=== PATIENT | female | born 1955 | race Caucasian/White ===

== ENCOUNTER 2017-07-14 15:26 | Emergency (ER) | payer OTHER ==
[2017-07-14 15:33] VITALS: TEMP 97.9
--- NOTE | 2017-07-14 15:37 | EDPHY ---
H & P Stated Complaint: racing heart since friday Time Seen by Provider: 07/14/17 15:36 - Medical/Surgical History Hx Asthma: No Hx Chronic Respiratory Disease: No Hx Diabetes: No Hx Cardiac Disease: No Hx Renal Disease: No Hx Cirrhosis: No Hx Alcoholism: No Hx HIV/AIDS: No Hx Splenectomy or Spleen Trauma: No Other PMH: PMH- HYPOTHYROID, UTERNIE CA, ?SVT. PSH0 HYSTERECTOMY - Social History Smoking Status: Never smoked Constitutional: Initial Vital Signs Temperature (C) 36.6 C 07/14/17 15:30 Heart Rate 94 07/14/17 15:30 Respiratory Rate 18 07/14/17 15:30 Blood Pressure 115/69 07/14/17 15:30 O2 Sat (%) 96 07/14/17 15:30 O2 Delivery Mode Room Air Allergies/Adverse Reactions: No Known Allergies Allergy (Unverified 07/14/15 16:57) Home Medications: Medication Instructions Recorded Magnesium 07/14/15 Synthroid 07/14/15 Medical Decision Making - Diagnostics EKG Interpretation: The 12 lead EKG was interpreted by myself. It shows intermittent premature atrial contractions. See hard copy and/or "tracemaster" electronic copy for interpretation. ED Course/Re-evaluation: CHIEF COMPLAINT: Heart palpitations HISTORY OF PRESENT ILLNESS: The patient is a 62 y/o female with a history of heart palpitations of unknown origin complaining of more frequent symptoms. She was evaluated in 2014 for similar symptoms and no acute cause was found. She was referred to cardiology for follow-up. She describes her heart palpitations as brief, lasting only half a second and taking her breath away. She feels she is forced to kneel during the episode. Over the past three months she noticed an increase in frequency of her symptoms. Friday she experienced seven episodes of heart palpitations. REVIEW OF SYSTEMS: A 10 point review of systems was performed and is negative with the exception of the elements mentioned in the history of present illness. PHYSICAL EXAM: HR, BP, O2 Sat, RR. Temp noted General Appearance: Alert, well hydrated, appropriate, and non-toxic appearing. Head: Atraumatic without scalp tenderness or obvious injury Eyes: Pupils equal, round, reactive to light and accommodation, EOMI, no trauma , no injection. Ears: Clear bilaterally, no perforation, normal landmarks Nose: Atraumatic, no rhinorrhea, clear. Throat: There is no erythema or exudates, no lesions, normal tonsils, mucus membranes moist. Neck: Supple, 2+ carotid upstroke, nontender, no lymphadenopathy. Respiratory: No retractions, no distress, no wheezes, and no accessory muscle use. Lungs are clear to auscultation bilaterally. Cardiovascular: Regular rate and rhythm, no murmurs, rubs, or gallops. Gastrointestinal: Abdomen is soft, nontender, non-distended, no masses, no rebound, no guarding, no peritoneal signs. Musculoskeletal: Normal active ROM of all extremities, atraumatic. Neurological: Alert, appropriate, and interactive. The patient has normal DTRs and non-focal cranial nerves, motor, sensory, and cerebellar exam. Skin: No rashes, good turgor, no nodules on palpation. Past medical history: Heart palpitations, thyroid replacement medications. Past surgical history: Denies. Family history: Non-contributory. 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 Past medical records reviewed including ED visit in 2014. DIAGNOSTICS/PROCEDURES/CRITICAL CARE TIME: The 12 lead EKG was interpreted by myself. It shows intermittent premature atrial contractions. See hard copy and/or "tracemaster" electronic copy for interpretation. DIFFERENTIAL DIAGNOSIS: The differential diagnosis for the patient's heart palpitations included but was not limited to arrhythmia, myocardial ischemia, pulmonary embolus, chest wall pain, pleural inflammation, and pulmonary infectious causes. MEDICAL DECISION MAKING: The patient is a 62 y/o female complaining of more frequent heart palpitations. She has been evaluated several years ago for similar symptoms and no acute cause was found. She has noticed an increase in the frequency of her symptoms. EKG and labs ordered. 1630: EKG shows premature atrial contractions which likely are the cause of her symptoms. I will update and reassess the patient. 182: So far the patient's labs are unremarkable. CBC is not yet back but patient requests to go home. I feel she is safe to be released. Return precaution and follow-up information given. - Data Points Laboratory Results: Laboratory Results 07/14/17 15:59 07/14/17 15:59 07/14/17 07/14/17 07/14/17 15:59 15:59 15:59 WBC TNP RBC Not Reported Hgb Not Reported Hct Not Reported MCV Not Reported MCH Not Reported MCHC Not Reported RDW Not Reported Plt Count Not Reported MPV Not Reported Neut % (Auto) Not Reported Lymph % (Auto) Not Reported [place] % (Auto) Not Reported Eos % (Auto) Not Reported Baso % (Auto) Not Reported Nucleat RBC Rel Count Not Reported Absolute Neuts (auto) Not Reported Absolute Lymphs (auto) Not Reported Absolute Monos (auto) Not Reported Absolute Eos (auto) Not Reported Absolute Basos (auto) Not Reported Absolute Nucleated RBC Not Reported Immature Gran % Not Reported Immature Gran # Not Reported D-Dimer < 0.27 ug/mLFEU ug/mLFEU (0.00-0.50) Sodium 140 mEq/L mEq/L (134-144) Potassium 4.0 mEq/L mEq/L (3.5-5.2) Chloride 105 mEq/L mEq/L (97-110) Carbon Dioxide 27 mEq/l mEq/l (22-31) Anion Gap 8 mEq/L mEq/L (8-16) BUN 17 mg/dL mg/dL (7-23) Creatinine 0.9 mg/dL mg/dL (0.6-1.0) Estimated GFR > 60 Glucose 82 mg/dL mg/dL (70-100) Calcium 10.1 mg/dL mg/dL (8.5-10.4) Magnesium 2.2 mg/dL mg/dL (1.6-2.3) Troponin I < 0.012 ng/mL ng/mL (0.000-0.034) NT-Pro-B Natriuret Pep 115 pg/mL pg/mL (0-125) TSH 1.390 uIU/mL uIU/mL (0.465-4.680) Departure - Departure Disposition: Home, Routine, Self-Care Clinical Impression: Premature atrial contraction Condition: Good Instructions: Palpitations (ED), Premature Atrial Contractions (ED) Additional Instructions: 1. Follow-up with Dr. Tavera, cardiology, regarding your premature atrial contractions in a week. 2. Return to the ED for chest pain, pain in one arm, shortness of breath, or other worsening of condition. Referrals: Sonia Lovell MD [Primary Care Provider] - As per Instructions Osmin Tavera MD [Medical Doctor] - As per Instructions Report Scribed for: Michael Buck Report Scribed by: Sara Miles Date of Report: 07/14/17 Time of Report: 16:41
--- NOTE | 2017-07-14 15:48 | CPEKG ---
Heart Rate: 75 RR Interval: 800 P-R Interval: 180 QRSD Interval: 84 QT Interval: 376 QTC Interval: 420 P [place]: 76 QRS [place]: 66 T Wave [place]: 38 EKG Severity - NORMAL ECG - EKG Impression: SINUS RHYTHM Electronically Signed By: Michael Buck 14-Jul-2017 21:06:20
[2017-07-14 16:29] LABS: ANION GAP 8 mEq/L (8-16); CALCIUM 10.1 mg/dL (8.5-10.4); CARBON DIOXIDE 27 mEq/l (22-31); CHLORIDE 105 mEq/L (97-110); CREATININE 0.9 mg/dL (0.6-1.0); GLOMERULAR FILTRATION RATE > 60; GLUCOSE 82 mg/dL (70-100); MAGNESIUM 2.2 mg/dL (1.6-2.3); SODIUM 140 mEq/L (134-144)
[2017-07-14 16:41] LABS: TROPONIN I < 0.012 ng/mL (0.000-0.034)
[2017-07-14 18:40] VITALS: BP 150/91; PULSE 76; RESP 21; O2SAT 97
== END 2017-07-14 18:44 | disposition home or self-care (01) ==
DX: I49.1 Atrial premature depolarization (principal)

== ENCOUNTER → 2017-08-14 | Outpatient (CLI) | payer OTHER | LOC: FIMAGING 08:13 | PROVIDERS: ATTEND Family Medicine | DX: Z12.31 Encounter for screening mammogram for malignant neoplasm of breast (principal) | CPT/HCPCS: G0202 ==

== ENCOUNTER 2017-10-13 07:04 | Observation (INO) | payer OTHER ==
[2017-10-13] MEDS ORDERED: NS 1,000 ML IV ONE (07:08)
--- NOTE | 2017-10-13 07:27 | CPEKG ---
Heart Rate: 67 RR Interval: 896 P-R Interval: 168 QRSD Interval: 82 QT Interval: 400 QTC Interval: 423 P [place]: 16 QRS [place]: 78 T Wave [place]: 54 EKG Severity - NORMAL ECG - EKG Impression: SINUS RHYTHM Electronically Signed By: Chucho Skelton 13-Oct-2017 08:39:14
[2017-10-13 07:39] LABS: PLATELET COUNT 198 10^3/uL (150-400)
[2017-10-13] MEDS ORDERED: HEPARIN 10,000 UNIT/10 ML MDV ONE (07:46)
[2017-10-13] MEDS ORDERED: LIDOCAINE 1% 300 MG/30 ML SDV ONE (07:46)
[2017-10-13] MEDS ORDERED: ISOPROTERENOL HCL/D5W 0.2 MG/50 ML BAG IV ONE (07:46)
[2017-10-13] MEDS ORDERED: BUPIVACAINE 0.5% 30 ML SDV ONE (07:46)
[2017-10-13 07:53] LABS: INR 0.88 (0.83-1.16); PROTIME(PATIENT) 12.2 SEC (12.0-15.0)
--- NOTE | 2017-10-13 08:31 | PDANEPAE ---
ANE History of Present Illness SVT ANE Past Medical History - Cardiovascular History Hx Hypertension: No Hx Arrhythmias: Yes Hx Chest Pain: No Hx Coronary Artery / Peripheral Vascular Disease: No Hx CHF / Valvular Disease: No Hx Palpitations: Yes - Pulmonary History Hx COPD: No Hx Asthma/Reactive Airway Disease: No Hx Recent Upper Respiratory Infection: No Hx Oxygen in Use at Home: No Hx Sleep Apnea: No - Endocrine History Hx Diabetes: No Hypothyroid: Yes Hyperthyroid: No - Renal History Hx Renal Disorders: No - Liver History Hx Hepatic Disorders: No - Neurological & Psychiatric Hx Hx Neurological and Psychiatric Disorders: No - Congenital Disorder History Hx Congenital Disorders: No ANE Review of Systems Review of systems is: negative Review of Systems: - Exercise capacity Exercise capacity: >=4 METS ANE Patient History - Allergies Allergies/Adverse Reactions: No Known Allergies Allergy (Unverified 07/14/15 16:57) - Home Medications Home Medications: Levothyroxine [Synthroid 75 mcg (*)] 75 mcg PO DAILY06 07/14/15 [Last Taken 1 Day Ago ~10/12/17] Biest [place] 1 each TP DAILY 10/08/17 [Last Taken 10/04/17] Cholecalciferol Vit D3 [Vitamin D3 2000 units tab (OTC)] 2,000 units PO DAILY [Last Taken 1 Day Ago ~10/12/17] Ferrous Sulfate [Ferrous Sulf 325 MG (*)] 325 mg PO DAILY 10/08/17 [Last Taken 1 Day Ago ~10/12/17] Herbals/Supplements -Info Only 1 ea PO DAILY 10/08/17 [Last Taken 1 Day Ago ~04/22] Ibuprofen [Motrin (*)] 200 - 400 mg PO DAILY PRN 10/08/17 [Last Taken 1 Day Ago ~10/12/17] Multivitamins [Multivitamin (*)] 1 each PO DAILY 10/08/17 [Last Taken 1 Day Ago ~10/12/17] Progesterone, Micronized [Progesterone] 100 mg PO HS 10/08/17 [Last Taken ] Testosterone Cream 1 [place] TP DAILY 10/08/17 [Last Taken 10/04/17] - NPO status NPO Status: no food or drink >8 hours - Anes Hx Anes Hx: slow to awaken from anesthesia - Smoking Hx Smoking Status: Never smoked - Alcohol Use Alcohol Use: Rarely ANE Labs/Vital Signs - Labs Result Diagrams: 10/13/17 07:25 10/13/17 07:25 - Vital Signs Vital Signs: reviewed preoperatively; see RN documention for details Height: 175.26 cm Weight: 63.503 kg ANE Physical Exam - Airway Mallampati Score: Class 2 Mouth exam: normal dental/mouth exam - Pulmonary Pulmonary: no respiratory distress - Cardiovascular Cardiovascular: regular rate and rhythym - ASA Status ASA Status: III ANE Anesthesia Plan Anesthesia Plan: general endotracheal anesthesia
--- NOTE | 2017-10-13 08:33 | PDGENHP ---
History & Physical Chief Complaint: palpitations History of Present Illness: symptomatic svt Relevant Physical Exam: [id number] [id number] Cardiorespiratory Assessment: symptomatic svt sp ablation
[2017-10-13] MEDS ORDERED: ROCURONIUM 100 MG/10 ML VIAL ONE ×2 (08:36→10:29)
[2017-10-13] MEDS ORDERED: PROPOFOL 200 MG/20 ML VIAL ONE (08:36)
[2017-10-13] MEDS ORDERED: PROPOFOL/EMULSION 500 MG/50 ML BOTTLE IV ONE ×4 (08:37→11:02)
[2017-10-13] MEDS ORDERED: fentaNYL 100 MCG/2 ML INJ ONE (08:37)
[2017-10-13] MEDS ORDERED: SUGAMMADEX SODIUM 200 MG/2 ML VIAL IVP ONE ×2 (11:22)
[2017-10-13] MEDS ORDERED: ONDANSETRON 4 MG/2 ML VIAL ONE (11:24)
[2017-10-13] MEDS ORDERED: PROTAMINE SULFATE 50 MG/5 ML VIAL IVP ONE (11:27)
[2017-10-13] MEDS ORDERED: ATROPINE SULFATE 1 MG/10 ML SYR ONE (11:50)
[2017-10-13] MEDS ORDERED: ONDANSETRON 4 MG/2 ML VIAL IVP PRN ×2 (12:09→12:10)
[2017-10-13] MEDS ORDERED: ACETAMINOPHEN 325 MG TAB PO PRN (12:09)
--- NOTE | 2017-10-13 12:09 | EPPROC ---
Electrophysiology Procedure Note: ELECTROPHYSIOLOGIC STUDY AND CATHETER MEDIATED ABLATION OF multiple FOCAL ATRIAL TACHYCARDIAS PROCEDURES PERFORMED: 1. EP evaluation with RA/RV/LA pace/record, with arrhythmia induction 2. EP evaluation with RA/RV pace record, insert/reposition catheter, with arrhythmia induction 3. Intracardiac catheter ablation, SVT arrhythmogenic focus 4. 3D mapping 5. Fluoroscopy INDICATION: Palpitations Presyncope Catheters and anesthesia: The patient arrived in the Electrophysiology Laboratory in the fasting state. The right clavicular region, right groin, and left groin area were prepped and draped in the usual sterile manner. Anesthesiologist Dr. Andres Parks administered propofol anesthesia. Appropriate non-invasive blood pressure, pulse oximetry and end-tidal CO2 monitoring was established. All catheters were placed percutaneously using the modified Seldinger technique , and advanced into position under fluoroscopic guidance. One #7 Maur[place] deflectable octapolar electrode catheter was advanced to the His-bundle position via the left femoral vein (2mm spacing; except the proximal ring which was 25cm from the tip used for unipolar recordings). One #7 Maur[place] deflectable catheter with 10 pairs of electrodes was placed via the left femoral vein into the coronary sinus. Liliane catheter was placed in the RA , followed by anh and then Pentaray catheter. Programmed stimulation was performed from the right atrium, left atrium ( coronary sinus) and right ventricle. Parahisian pacing demonstrated all retrograde conduction over the AV node Heparin was administered to keep ACT > 250 seconds. There is a probe patent PFO present. There was no antegrade slow AV jaquelin pathway conduction. Programmed stimulation of right atrium during infusion of isoproterenol 1 mcg/ min induced atrial tachycardias as noted below. High resolution mapping of the atrial tachycardia was done using Pentaray catheter. Following this, a #7 Mauritian mapping catheter was introduced into the right atrium and used for mapping AT . SR0 sheath was used. A 3D mapping system ([employer]) was used. Following atrial tachycardias were induced and successfully ablated. High output pacing was performed at each site to exclude phrenic nerve locations. AT#1 CL 440 ms, superior aspect of anh terminalis. AT#2 CL 290-300 ms SVC-RA junction AT#3, CL 420 ms SVC RA junction AT #4, CL 460 ms base of right atrial appendage Programmed stimulation in the baseline state and during infusion of isoproterenol 1 and mcg/min post ablation was performed. No tachycardia could be induced. The catheters were removed. The patient was transferred to the cardiovascular holding area in stable condition. Vascular access sheaths were removed in the holding area. There were no apparent complications. CONCLUSIONS: 1. 4 separate right atrial tachycardias as noted above. 2. Successful ablation of focal atrial tachycardias. 3. Probe patent PFO. 4. No apparent complications. Patient Problems: Problems Problem Status Onset Supraventricular tachycardia Acute
[2017-10-13] MEDS ORDERED: OXYCODONE/APAP 5/325 TAB PO PRN (12:10)
[2017-10-13] MEDS ORDERED: NALOXONE HCL 0.4 MG/ML INJ IVP PRN (12:10)
[2017-10-13] MEDS ORDERED: fentaNYL 100 MCG/2 ML INJ IVP PRN (12:10)
[2017-10-13] MEDS ORDERED: HYDROCODONE/APAP 5/325 TAB PO PRN (12:10)
[2017-10-13] MEDS ORDERED: PROMETHAZINE HCL 25 MG/ML INJ IVP PRN (12:10)
[2017-10-13] MEDS ORDERED: ALBUTEROL 3 ML DEYVIAL IH PRN (12:10)
--- NOTE | 2017-10-13 12:11 | POSTANESTH ---
Post Anesthetic Evaluation Cardiovascular Status: Normal, Stable Respiratory Status: Normal, Stable Level of Consciousness/Mental Status: Can Participate in Eval Pain Control: Adequate, Prn Tx Ordered Nausea/Vomiting Control: Adequate, Prn Tx Ordered Complications Possibly Related to Anesthesia: None Noted
--- NOTE | 2017-10-13 12:37 | CPEKG ---
Heart Rate: 85 RR Interval: 706 P-R Interval: 220 QRSD Interval: 82 QT Interval: 360 QTC Interval: 428 P [place]: 26 QRS [place]: 77 T Wave [place]: 53 EKG Severity - ABNORMAL ECG - EKG Impression: SINUS RHYTHM EKG Impression: FIRST DEGREE AV BLOCK EKG Impression: PROBABLE LEFT ATRIAL ABNORMALITY Electronically Signed By: Chucho Skelton 13-Oct-2017 20:29:59
[2017-10-14 04:24] LABS: PLATELET COUNT 184 10^3/uL (150-400)
[2017-10-14 04:34] LABS: CREATINE KINASE 71 IU/L (0-156)
[2017-10-14 04:37] LABS: INR 0.9 (0.83-1.16); PROTIME(PATIENT) 12.4 SEC (12.0-15.0)
[2017-10-14] MEDS ORDERED: LEVOTHYROXINE 75 MCG TAB PO SCH (06:00)
[2017-10-14 07:21] VITALS: BP 112/66; PULSE 78; RESP 16; TEMP 97.7; O2SAT 91
[2017-10-14] MEDS ORDERED: ASPIRIN 81 MG CHEWABLE TAB PO SCH (09:00)
--- NOTE | 2017-10-14 09:01 | CPEKG ---
Heart Rate: 77 RR Interval: 779 P-R Interval: 204 QRSD Interval: 86 QT Interval: 372 QTC Interval: 421 P [place]: 32 QRS [place]: 78 T Wave [place]: 53 EKG Severity - BORDERLINE ECG - EKG Impression: SINUS RHYTHM EKG Impression: BORDERLINE T ABNORMALITIES, ANT-LAT LEADS EKG Impression: BORDERLINE FIRST DEGREE AVB Electronically Signed By: Frederick Torres 14-Oct-2017 14:40:29
--- NOTE | 2017-10-14 09:14 | ECHO ---
[email or web address] [address] [address] Main: [phone] Fax: Transthoracic Echocardiogram Name: JESS RAE MR#: [id number] Study Date: 10/14/2017 Study Time: 07:47 AM Date of : 1955 Age: 62 year(s) Height: 175.3 cm (69 in.) Weight: 63.5 kg (140 lb.) BSA: 1.78 m2 Gender: Female Examination: Echo Indication: Image Quality: Contrast: Requested by: Chucho Skelton BP: 112 mmHg/66 mmHg Heart Rate: Rhythm: Indication: Procedure Staff Hr Intern: Jess Verduzco Reading Physician: Chucho Skelton Requesting Provider: Conclusions: Normal global systolic LV function. The ejection fraction is estimated to be 60-65 %. Trivial mitral valve regurgitation. No pericardial effusion. Measurements: Chambers Valvular Assessment AV/MV Valvular Assessment TV/PV Normal Normal Normal Name Value Range Name Value Range Name Value Range Ao Kiara (MM): 3.4 cm (2.2 cm-3.7 AV Vmax: 1.06 m/s (1 m/s-1.7 cm) m/s) IVSd (2D): 0.5 cm (0.6 cm-1.1 AV maxP mmHg ( - ) cm) MV E Vmax: 0.55 m/s ( - ) LVDd (2D): 4.7 cm (3.9 cm-5.3 MV A Vmax: 0.63 m/s ( - ) cm) MV E/A: 0.87 ( - ) LVDs (2D): 3.2 cm (2.1 cm-4 cm) LVPWd (2D): 0.6 cm ( - ) LVEF (MOD4): 71 % (>=55 %) EF Range: 60-65 % Continued Measurements: Chambers Valvular Assessment AV/MV Name Value Name Value LADs: 2.8 cm MV E/E' Septal: 7.80 LADs Lon.7 cm MV E/E' Lateral: 6.40 LA Area: 18.1 cm2 Patient: JESS RAE Study Date: 10/14/2017 Page 1 of 2 07:47 AM Additional Vessels Name Value Ao Ascendin.9 cm Findings: Left Ventricle: Normal size left ventricle. Normal global systolic LV function. The ejection fraction is estimated to be 60-65 %. No regional wall motion abnormality. Right Ventricle: Normal size right ventricle. Left Atrium: The left atrium is normal in size. Right Atrium: The right atrium is normal in size. Mitral Valve: The mitral valve is normal in appearance and function. Trivial mitral valve regurgitation. Aortic Valve: The aortic valve is normal in appearance and function. Tricuspid Valve: The tricuspid valve is normal in appearance and function. Trivial tricuspid valve regurgitation. Pulmonic Valve: Pulmonary valve not well visualized. Aorta: The aorta is normal. Pericardium: No pericardial effusion. (No Signature Object) Patient: JESS RAE Study Date: 10/14/2017 Page 2 of 2 07:47 AM D:_[id number]
--- NOTE | 2017-10-14 17:33 | ASDISCHSUM ---
Discharge Information Plan Status:Home with No Needs Medically Cleared to Leave:10/13/2017 Discharge Date:10/14/2017 11:28 AM CM D/C Disposition:Home, Routine, Self-Care ADT D/C Disposition:Home, Routine, Self-Care Projected Discharge Date:10/14/2017 11:28 AM Transportation at D/C:Family Discharge Delay Reason: Follow-Up Date:10/14/2017 11:28 AM Discharge Slot: Final Diagnosis: Placement Information Patient Contact Information Contact Name:NELLA Relationship:Life Partner Address:[address] City:[place] Alternate Phone: State/Zip Code:[place] [address] Email: Financial Information Financial Class:HMO and PPO Plans Primary Plan Desc:[facility] Primary Plan Number:[id number] Secondary Plan Desc: Secondary Plan Number: Assessment Information LACE LACE Length of stay for Answers: Less than 1 day current admission Acuity / Level of Care Answers: No. Emergency dept visits in Answers: 1 last 6 months Score: 1 Date Signed: 10/14/2017 10:29 AM Electronically Signed By:Yuridia Roper RN Intervention Information
--- NOTE | 2017-10-14 18:52 | GDS ---
[f rep st] DISCHARGE SUMMARY DISCHARGE DIAGNOSIS: 1. Supraventricular tachycardia. 2. Status post atrial tachycardia ablation x4. BRIEF HISTORY: This is a 62-year-old patient who was referred to Dr. Skelton by Dr. Osmin Tavera for SVT management. She has had a history of palpitations for 1 year. These have been increasing and she has had at least 1 episode of near syncope. ZIO monitoring demonstrated 617 episodes of SVT over a 13-day period. HOSPITAL COURSE: Dr. Skelton ablated 4 different atrial tachycardias: 1. With a cycle length of 440 milliseconds at the superior aspect of the anh terminalis. 2. Cycle length of 290-300 milliseconds at the SVC-RA junction. 3. Cycle length of 420 milliseconds at the SVC-RA junction. 4. Cycle length of 460 milliseconds at the base of the right atrial appendage. Tess has done well overnight. She has not had any arrhythmias on telemetry. She denies any chest pain, pressure, or tightness. She has not had any shortness of breath or groin site pain. TESTING DONE: Echocardiogram demonstrates ejection fraction of 60% to 65% with no pericardial effusion. A 12-lead EKG demonstrates sinus rhythm without acute ST-T wave changes. LAB WORK: WBC is 5.56, hemoglobin 12.9, hematocrit 38, platelets 184. Sodium 143, potassium 4.2, chloride 107, bicarb 25, BUN 15, creatinine 0.8, glucose 88. CK 71. Troponin 0.79. PHYSICAL EXAMINATION: VITAL SIGNS: Blood pressure is 112/66, pulse is 78, respirations 16, temperature 36.5, O2 saturation on room air is 91%. GENERAL: She is alert and oriented lying in bed in no acute distress. CARDIAC: Regular rate and rhythm without murmur, rub, or gallop. LUNGS: Clear to auscultation. ABDOMEN: Soft and nontender. Groin sites are without hematoma or bleeding. Very slight ecchymosis on the right site. EXTREMITIES: Warm, no discoloration. Bilateral +2 pedal pulses. DISCHARGE INSTRUCTIONS: Post ablation activity restrictions were reviewed verbally with the patient and her sister, as well as written instructions, at the time of discharge. DISCHARGE MEDICATIONS: Please see discharge medication reconciliation for discharge. Note, she will take aspirin 81 mg enteric-coated for 6 weeks daily post ablation. She will stop hormonal therapy for 6 weeks post ablation. FOLLOWUP: She has a followup November, at 1:[address] Skelton. /[id number]/MODL MTDD
== END 2017-10-14 11:28 | disposition home or self-care (01) ==
LOC: FCATH 07:04 → F2W 11:48
PROVIDERS: ADMIT Internal Medicine Cardiovascular Disease; ATTEND Internal Medicine Cardiovascular Disease
PROC: 02K83ZZ Map Conduction Mechanism, Percutaneous Approach (ICD-10-PCS; principal; 2017-10-13)
PROC: 02583ZZ Destruction of Conduction Mechanism, Percutaneous Approach (ICD-10-PCS; principal; 2017-10-13)
PROC: 5A1213Z Performance of Cardiac Pacing, Intermittent (ICD-10-PCS; principal; 2017-10-13)
PROC: 4A023FZ Measurement of Cardiac Rhythm, Percutaneous Approach (ICD-10-PCS; principal; 2017-10-13)
DX: I47.1 Supraventricular tachycardia (principal); R00.2 Palpitations; E03.9 Hypothyroidism, unspecified
CPT/HCPCS: 93005; 93306; 93613; 93623; 93653; 93655; C1730; C1732; C1893; G0378; C1731; J0461; J1644; J2405; J2704; J2720; J3010

== ENCOUNTER → 2018-09-02 | Outpatient (CLI) | payer OTHER | LOC: FIMAGING 07:50 | PROVIDERS: ATTEND Family Medicine | DX: Z12.31 Encounter for screening mammogram for malignant neoplasm of breast (principal) ==

== ENCOUNTER → 2018-12-23 | Outpatient (CLI) | payer OTHER | LOC: FIMAGING 10:05 | PROVIDERS: ATTEND Physician Assistant | DX: S92.592A Other fracture of left lesser toe(s), initial encounter for closed fracture (principal) ==